=== PATIENT | male | born 1960 | race Caucasian/White ===

== ENCOUNTER 2025-08-07 14:27 | Outpatient (CLI) | payer OTHER | END 2025-08-07 14:28 | disposition home or self-care (01) | LOC: CSHMRI 14:27 | PROVIDERS: ATTEND Orthopaedic Surgery | DX: S46.211A Strain of muscle, fascia and tendon of other parts of biceps, right arm, initial encounter (principal); S53.21XA Traumatic rupture of right radial collateral ligament, initial encounter ==